=== PATIENT | male | born 1980 ===

== ENCOUNTER 2017-09-07 18:06 | Emergency (ER) | payer OTHER ==
[~2017-09-07] VITALS: Ht 165.1 cm; Wt 71.4 kg
[2017-09-07 18:14] VITALS: TEMP 36.5; Ht 165.1 cm; Wt 71.4 kg
[2017-09-07] MEDS ORDERED: METHYLPREDNISOLONE 125 MG VIAL IV STA (18:30)
[2017-09-07] MEDS ORDERED: FAMOTIDINE 20MG/5ML IV PUSH IV STA (18:30)
--- NOTE | 2017-09-07 18:33 | EMERGENCY ROOM VISIT NOTE ---
History Report prepared by Oc: Inessa Goldstein Under the Supervision of: Dr. Neeraj Escobar M.D. First contact with patient: 18:23 Chief Complaint: ALLERGIC REACTION Stated Complaint: ALLERGIC REACTION Nursing Triage Summary: pt c/o face and eye swelling which began approximatley at 1630 after eating mixed nuts. pt states he began to feel itchy then swelling began. denies cp or sob. states he has not ate mixed nuts for over 6 years. History of Present Illness The patient is a 36 year old male who presents to the Emergency Room with complaints of a persistent allergic reaction that occurred about 2 hours ago. The patient states that his eyes began itching and swelling up about 30 minutes after eating cashews, pistachios, and almonds. He notes that his throat felt numb and he had some trouble breathing. The patient denies having similar symptoms in the past. He notes that he took took an allergy relieving capsule prior to arrival and that EMS gave him Benadryl. Source of History: patient Onset: 1630 Position: other (global) Quality: other (allergic reaction) Timing: other (persistent) Note: Associated symptoms include trouble breathing and eye itching/ swelling. Review of Systems See HPI for pertinent positives & negatives. A total of 10 systems reviewed and were otherwise negative. Past Medical & Surgical Medical Problems: (1) No Known Active Medical Problems Family History Patient reports no known family medical history. Social History Smoking Status: Never Smoker Smokeless Tobacco Use: No Alcohol Use: none Drug Use: none Marital Status: Housing Status: lives with family Occupation Status: employed Current/Historical Medications Scheduled Epinephrine (Epipen), 0.3 MG IM UD Prednisone (Prednisone Tab), 0 PO DAILY Ranitidine Hcl (Zantac), 150 MG PO BID Scheduled PRN Diphenhydramine Hcl (Benadryl), 50 MG PO DAILY PRN for Allergic Reaction Allergies Coded Allergies: No Known Allergies (Unverified , 09/07/17) Physical Exam Vital Signs Date Time Temp Pulse Resp B/P (MAP) Pulse Ox O2 Delivery O2 Flow Rate FiO2 09/07/17 20:00 78 18 115/65 98 Room Air 09/07/17 18:14 91 09/07/17 18:14 98 Room Air 09/07/17 18:14 36.5 82 18 134/86 98 Room Air Physical Exam GENERAL: Patient is a healthy-appearing well-nourished male HEAD: Normocephalic atraumatic EYES: Ecchymosis bilateral to eyes, no stridor. Ocular movements intact pupils equal and react to light OROPHARYNX mucous membranes are moist no exudates present no erythema or edema present NECK: Supple no nuchal rigidity CHEST: Good equal expansion LUNGS: No wheezing. Clear and equal to auscultation CARDIAC: Normal S1 and S2 ABDOMEN: Soft nontender no guarding BACK: No CVA tenderness EXTREMITIES: No pain upon palpation normal muscle strength in all groups no clubbing cyanosis or edema NEURO: Patient is following commands and answering questions appropriately. Alert and oriented x3 Cranial Nerves 2-12 grossly intact Medical Decision & Procedures Medications Administered Medications (Trade) Dose Ordered Sig/Maria Elena Route Start Time Stop Time Status Last Admin Dose Admin Methylprednisolone Sodium Succinate (Solu-Medrol IV) 125 mg NOW STAT IV 09/07/17 18:30 09/07/17 18:32 DC 09/07/17 18:38 125 MG Famotidine (Pepcid 20mg Iv Push) 20 mg ONE STAT IV 09/07/17 18:30 09/07/17 18:32 DC 09/07/17 18:38 20 MG ED Course 182: Past medical records reviewed. The patient was evaluated in room A10. A complete history and physical examination was performed. 183: Ordered Famotidine 20mg IV and Solu-Medrol IV 125mg IV. 2004: Upon reexamination the patient is resting comfortably. I discussed results and treatment plan with the patient. He verbalizes agreement and understanding. The patient is ready for discharge. Medical Decision Differential diagnosis: Etiologies such as allergic reaction, anaphylaxis, urticaria, Tejeda-Bijan syndrome, toxic epidermal necrolysis, erythema multiforme, cellulitis, as well as others were entertained. This is a 36-year-old male who presents emergency department complaining of swollen eyes and itchy throat after eating peanuts. In the emergency department the patient was given Solu-Medrol as well as Zantac. He is observed for a total of 2 hours in the emergency department and showed improvement. I do believe that the patient can be safely discharged home for follow-up with his primary care physician. He was given a prednisone taper as well as Zantac and EpiPen's. 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 Patient was in agreement with the treatment plan. Medication Reconcilliation Current Medication List: was personally reviewed by me Blood Pressure Screening Patient's blood pressure: Normal blood pressure Impression Primary Impression: Allergic reaction Scribe Attestation The scribe's documentation has been prepared under my direction and personally reviewed by me in its entirety. I confirm that the note above accurately reflects all work, treatment, procedures, and medical decision making performed by me. Departure Information Dispostion Home / Self-Care Prescriptions Ranitidine Hcl (ZANTAC) 150 Mg Tab 150 MG PO BID for 7 Days, #14 TAB Prov: Neeraj Escobar MD 09/07/17 Epinephrine (EPIPEN) 0.3 Mg/0.3 Ml Inj 0.3 MG IM UD, #2 BOX Prov: Neeraj Escobar MD 09/07/17 Prednisone (Prednisone Tab) 20 Mg Tab 0 PO DAILY, #7 TAB 2 TABS DAILY FOR 2 DAYS, THEN 1 TAB DAILY FOR 2 DAYS, THEN 1/2 TAB DAILY FOR 2 DAYS. Prov: Neeraj Escobar MD 09/07/17 Forms HOME CARE DOCUMENTATION FORM, IMPORTANT VISIT INFORMATION Patient Instructions [facility] Additional Instructions Take 50 mg benadryl every 6 hours as needed You have been examined and treated today on an emergency basis only. This is not a substitute for, or an effort to provide, complete comprehensive medical care. It is impossible to recognize and treat all injuries or illnesses in a single emergency department visit. It is therefore important that you follow up closely with Dr Staples. Call as soon as possible for an appointment. Thank you for your time and consideration. I look forward to speaking with you again soon. Please don't hesitate to call us if you have any questions. Problem Qualifiers Primary Impression: Allergic reaction Encounter type: initial encounter Qualified Codes: T78.40XA - Allergy, unspecified, initial encounter
[2017-09-07] MEDS ORDERED: RANI150T3 PO (19:41)
[2017-09-07] MEDS ORDERED: EPP3/2 IM (19:41)
[2017-09-07] MEDS ORDERED: PRED20TA2 PO (19:41)
[2017-09-07] MEDS ORDERED: DIPH25CA5 PO (19:57)
[2017-09-07 20:00] VITALS: BP 115/65; PULSE 78; O2SAT 98
== END 2017-09-07 20:14 | disposition home or self-care (01) ==
LOC: C.EDA 18:09
DX: T78.40XA Allergy, unspecified, initial encounter (principal); L29.9 Pruritus, unspecified; R06.00 Dyspnea, unspecified